=== PATIENT | female | born 1995 | race Caucasian/White ===

== ENCOUNTER 2018-06-09 17:26 | Emergency (ER) | payer OTHER ==
[2018-06-09] MEDS ORDERED: NS 1,000 ML IV ONE (17:51)
--- NOTE | 2018-06-09 17:51 | EDPHY ---
H & P Stated Complaint: dysuria, bilat flank pain since yesterday +uti started cipro today Time Seen by Provider: 06/09/18 17:50 HPI/ROS: CHIEF COMPLAINT: Dysuria, bilateral flank pain HISTORY OF PRESENT ILLNESS: The patient presents to the ED with a 2 day history of dysuria and now has developed bilateral flank pain and nausea. She denies fever. She denies prior history of recent urinary tract infection. She was seen at urgent care and reportedly had a positive urine dipstick and was started on ciprofloxacin today. She presents to the ED today secondary to her flank pain. The patient denies any history of abdominal surgery. She denies any upper respiratory symptoms. She denies additional acute complaints. REVIEW OF SYSTEMS: A comprehensive 10 point review of systems is otherwise negative aside from elements mentioned in the history of present illness. Source: Patient Exam Limitations: No limitations - Personal History LMP (Females 10-55): 1-7 Days Ago - Medical/Surgical History Hx Asthma: No Hx Chronic Respiratory Disease: No Hx Diabetes: No Hx Cardiac Disease: No Hx Renal Disease: No Hx Cirrhosis: No Hx Alcoholism: No Hx HIV/AIDS: No Hx Splenectomy or Spleen Trauma: No Other PMH: denies - Social History Smoking Status: Never smoked - Physical Exam Exam: General Appearance: Alert, no distress Eyes: Pupils equal and round no pallor or injection ENT, Mouth: Mucous membranes moist Respiratory: There are no retractions, lungs are clear to auscultation Cardiovascular: Regular rate and rhythm Gastrointestinal: Mild generalized abdominal tenderness, poorly localized, no peritoneal signs. Bilateral CVA tenderness noted Neurological: 5/5 strength noted all 4 extremities Skin: Warm and dry, no rashes Musculoskeletal: Neck is supple nontender Extremities: symmetrical, full range of motion Constitutional: Initial Vital Signs Temperature (C) 37.4 C 06/09/18 17:33 Heart Rate 85 06/09/18 17:33 Respiratory Rate 16 06/09/18 17:33 Blood Pressure 112/85 H 06/09/18 17:33 O2 Sat (%) 97 06/09/18 17:33 O2 Delivery Mode Room Air Allergies/Adverse Reactions: No Known Allergies Allergy (Unverified 06/09/18 17:33) Home Medications: Medication Instructions Recorded Cipro 06/09/18 Hydrocodone/APAP 5/325 [[place] 1 - 2 each PO Q6 PRN #20 tab 06/09/18 5/325] Ondansetron Odt [Zofran Odt] 4 mg PO Q4PRN PRN #20 tab 06/09/18 levOFLOXACIN [Levaquin] 500 mg PO DAILY #10 tab 06/09/18 Medical Decision Making ED Course/Re-evaluation: The patient presents to the emergency department with flank pain and dysuria. She was diagnosed with a urinary tract infection earlier today and received only a single dose of ciprofloxacin. She has not taken any significant pain medications aside from [id number] Tylenol. The patient was noted to have CVA tenderness on exam. She is afebrile and hemodynamically stable. Workup in the emergency department does demonstrate pyuria, bacteriuria and a slight leukocytosis. The patient had an IV established. She received 1 g of Rocephin. The patient did receive IV narcotics for pain management. I re-evaluated the patient at 8:30 p.m. and informed her of the likely diagnosis of pyelonephritis. No focal right lower quadrant tenderness to palpation Patient will be given a prescription for narcotic pain medications. She is advised to use Advil. I doubt appendicitis based upon her current examination however have informed her she should return to the ED in 8-12 hours for any unimproved symptoms. Differential Diagnosis: Differential diagnosis considered includes pyelonephritis, cystitis, appendicitis, gastroenteritis, nephrolithiasis - Data Points Laboratory Results: Laboratory Results 06/09/18 17:55 06/09/18 17:55 06/09/18 06/09/18 06/09/18 17:55 17:55 17:55 WBC 11.03 10^3/uL H 10^3/uL (3.80-9.50) RBC 4.67 10^6/uL 10^6/uL (4.18-5.33) Hgb 14.8 g/dL g/dL (12.6-16.3) Hct 43.4 % % (38.0-47.0) MCV 92.9 fL fL (81.5-99.8) MCH 31.7 pg pg (27.9-34.1) MCHC 34.1 g/dL g/dL (32.4-36.7) RDW 11.3 % L % (11.5-15.2) Plt Count 243 10^3/uL 10^3/uL (150-400) MPV 11.2 fL fL (8.7-11.7) Neut % (Auto) 67.3 % % (39.3-74.2) Lymph % (Auto) 23.2 % % (15.0-45.0) [place] % (Auto) 8.1 % % (4.5-13.0) Eos % (Auto) 0.5 % L % (0.6-7.6) Baso % (Auto) 0.4 % % (0.3-1.7) Nucleat RBC Rel Count 0.0 % % (0.0-0.2) Absolute Neuts (auto) 7.43 10^3/uL H 10^3/uL (1.70-6.50) Absolute Lymphs (auto) 2.56 10^3/uL 10^3/uL (1.00-3.00) Absolute Monos (auto) 0.89 10^3/uL H 10^3/uL (0.30-0.80) Absolute Eos (auto) 0.06 10^3/uL 10^3/uL (0.03-0.40) Absolute Basos (auto) 0.04 10^3/uL 10^3/uL (0.02-0.10) Absolute Nucleated RBC 0.00 10^3/uL 10^3/uL (0-0.01) Immature Gran % 0.5 % % (0.0-1.1) Immature Gran # 0.05 10^3/uL 10^3/uL (0.00-0.10) Sodium 138 mEq/L mEq/L (135-145) Potassium 3.9 mEq/L mEq/L (3.3-5.0) Chloride 103 mEq/L mEq/L (97-110) Carbon Dioxide 24 mEq/l mEq/l (22-31) Anion Gap 11 mEq/L mEq/L (8-16) BUN 7 mg/dL mg/dL (7-23) Creatinine 0.6 mg/dL mg/dL (0.6-1.0) Estimated GFR > 60 Glucose 91 mg/dL mg/dL (70-100) Calcium 9.8 mg/dL mg/dL (8.5-10.4) Beta HCG, Qual NEGATIVE Urine Color Urine Appearance Urine pH Ur Specific [place] Urine Protein Urine Ketones Urine Blood Urine Nitrate Urine Bilirubin Urine Urobilinogen Ur Leukocyte Esterase Urine RBC Urine WBC Ur Epithelial Cells Urine Bacteria Urine Mucus Urine Glucose 06/09/18 17:50 WBC RBC Hgb Hct MCV MCH MCHC RDW Plt Count MPV Neut % (Auto) Lymph % (Auto) [place] % (Auto) Eos % (Auto) Baso % (Auto) Nucleat RBC Rel Count Absolute Neuts (auto) Absolute Lymphs (auto) Absolute Monos (auto) Absolute Eos (auto) Absolute Basos (auto) Absolute Nucleated RBC Immature Gran % Immature Gran # Sodium Potassium Chloride Carbon Dioxide Anion Gap BUN Creatinine Estimated GFR Glucose Calcium Beta HCG, Qual Urine Color YELLOW Urine Appearance CLEAR Urine pH 6.0 (5.0-7.5) Ur Specific [place] 1.013 (1.002-1.030) Urine Protein NEGATIVE (NEGATIVE) Urine Ketones NEGATIVE (NEGATIVE) Urine Blood NEGATIVE (NEGATIVE) Urine Nitrate NEGATIVE (NEGATIVE) Urine Bilirubin NEGATIVE (NEGATIVE) Urine Urobilinogen NEGATIVE EU EU (0.2-1.0) Ur Leukocyte Esterase 1+ H (NEGATIVE) Urine RBC 1-3 /hpf /hpf (0-3) Urine WBC 25-50 /hpf H /hpf (0-3) Ur Epithelial Cells 2+ /lpf H /lpf (NONE-1+) Urine Bacteria TRACE /hpf H /hpf (NONE SEEN) Urine Mucus TRACE /lpf /lpf (NONE-1+) Urine Glucose NEGATIVE (NEGATIVE) Medications Given: Discontinued Medications Hydromorphone HCl (Dilaudid) 0.5 mg IVP EDNOW ONE Stop: 06/09/18 18:33 Last Admin: 06/09/18 18:39 Dose: 0.5 mg Sodium Chloride (Ns) 1,000 mls @ 0 mls/hr IV EDNOW ONE; Wide Open PRN Reason: Protocol Stop: 06/09/18 17:52 Last Admin: 06/09/18 18:01 Dose: 1,000 mls Ceftriaxone Sodium/Dextrose (Rocephin 1 Gm (Premix)) 50 mls @ 100 mls/hr IV EDNOW ONE PRN Reason: Protocol Stop: 06/09/18 20:03 Last Admin: 06/09/18 19:51 Dose: 50 mls Departure - Departure Disposition: Home, Routine, Self-Care Clinical Impression: Pyelonephritis Condition: Good Instructions: Kidney Infection (ED) Additional Instructions: 1. Take antibiotics as prescribed. You have been given a prescription for Levaquin instead of ciprofloxacin. 2. Zofran as needed for nausea. 3. Take Ibuprofen or Motrin 600 mg by mouth three times a day. 4. [place] as needed for severe pain 5. Return to the ED for markedly worsening pain, fever, vomiting, pain which seems to be localized to the right lower quadrant of your abdomen or other concerns . Referrals: CABRERA RANKIN [Primary Care Provider] - As per Instructions Prescriptions: Hydrocodone/APAP 5/325 [[place] 5/325] 1 - 2 each PO Q6 PRN #20 tab PRN Reason: for pain levOFLOXACIN [Levaquin] 500 mg PO DAILY #10 tab Ondansetron Odt [Zofran Odt] 4 mg PO Q4PRN PRN #20 tab PRN Reason: For Nausea
[2018-06-09] MEDS ORDERED: HYDROmorphONE/DILAUDID 2 MG/ML INJ IVP ONE (18:32)
[2018-06-09 18:43] LABS: PLATELET COUNT 243 10^3/uL (150-400)
[2018-06-09] MEDS ORDERED: levOFLOXACIN 500 MG/DEXTROSE 100 ML IV ONE (19:32)
[2018-06-09] MEDS ORDERED: metroNIDAZOLE 500 MG TAB PO ONE (19:33)
[2018-06-09] MEDS ORDERED: HYDROCOD/APAP 5/325 PREPACK#6 BTL TAKEHOME ONE (20:27)
[2018-06-09] MEDS ORDERED: ONDANSETRON 4MG PREPACK#2 BTL TAKEHOME ONE (20:27)
[2018-06-09 20:41] VITALS: BP 103/82
== END 2018-06-09 20:50 | disposition home or self-care (01) ==
DX: N12 Tubulo-interstitial nephritis, not specified as acute or chronic (principal)
CPT/HCPCS: 96365; J0696; J1170